=== PATIENT | male | born 1995 | race Caucasian/White ===

== ENCOUNTER 2020-12-05 19:01 | Emergency (ER) | payer OTHER, SELFPAY ==
[2020-12-05 19:30] VITALS: BP 124/65; PULSE 115; RESP 18; TEMP 39.4; O2SAT 100; BMI 33.9
--- NOTE | 2020-12-05 19:43 | ED_ITS ---
HPI - Fever General: Chief Complaint: Fever Stated Complaint: Got Covid Shot\Fever\Numbness\Blacking Out Time Seen by Provider: 12/05/20 19:43 History of Present Illness: HPI Narrative: Patient comes in today with complaints of fever sore throat and body aches since Tuesday. On Tuesday patient had got his second Mederma vaccine. Patient reports 2 prior episodes of COVID-19 with his last episode last October and 2019. Patient appears mildly unwell but not toxic. Patient is alert oriented and talking without difficulty. Respirations are even and skin is warm and dry. MD elicited complaint: fever Review of Systems General: Reports: 10 or more systems reviewed and unremarkable except in HPI and below Const: Reports: fever(s) ENMT: Reports: throat pain Musc: Reports: other (Myalgias) Physical Exam Const: COMMON NORMALS: no acute distress and patient oriented x3 GENERAL APPEARANCE: cooperative HENMT: COMMON NORMALS: normocephalic, TM's normal bilaterally and Normal external nose present HEAD & SCALP: normal to inspection and normocephalic NOSE: Normal external nose present TYMPANIC MEMBRANE: TM's normal bilaterally MOUTH: Normal oral and palatal mucosa present THROAT: posterior oropharynx abnormal erythema and exudates Eye: GENERAL EYE: appearance normal, both eyes and all related structures Neck/C-Spine: COMMON NORMALS: full ROM Chest: COMMONS NORMALS: normal inspection of the chest Resp: COMMON NORMALS: normal respiratory effort and clear to auscultation bilaterally EFFORT & INSPECTION: Yes able to speak in complete sentences AUSCULTATION: clear to auscultation bilaterally Cardio: COMMON NORMALS: regular rate and regular rhythm RATE: regular rate RHYTHM: regular rhythm GI: COMMON NORMALS: non-tender : COMMON NORMALS: Yes no CVA tenderness BLADDER/KIDNEY EXAM: Yes no CVA tenderness Back/Pelvis: COMMON NORMALS: no CVA tenderness and thoracic and lumbar spine normal to inspection Extremity: COMMON NORMALS: normal to inspection Neuro: COMMON NORMALS: patient oriented x3 and moves all extremities Psych: COMMON NORMALS: mental status grossly normal and cooperative Skin: COMMON NORMALS: no rashes or lesions noted GENERAL SKIN EXAM: no rashes or lesions noted Course Vital Signs: Vital signs: Vital Signs Temperature 103.0 F H 12/05/20 19:30 Pulse Rate 99 12/05/20 19:49 Respiratory Rate 17 12/05/20 19:49 Blood Pressure 153/73 12/05/20 19:49 Pulse Oximetry 95 12/05/20 19:49 MDM - Fever MDM Narrative: Medical decision making narrative: 25-year-old male patient comes in with sore throat and fever. Patient reports illness since getting his second COVID-19 vaccine. On exam patient has some erythema and some tonsillar exudate. Respirations are even lungs are clear to auscultation. Vital signs are normal except for elevated temperature. Skin is warm and dry. Abdomen soft nontender. Respirations even lungs clear to auscultation. Differential diagnosis includes but not limited to viral pharyngitis, strep pharyngitis, COVID-19, influenza, post vaccine response. Patient was treated with ketorolac and acetaminophen for pain and fever. Patient was also given 10 mg dexamethasone for his pharyngitis. Lab screening test for Covid, strep, influenza were negative. CBC and CMP were unremarkable. CRP was slightly elevated at 68. I believe patient probably most likely has a immune response to his vaccine, although patient may have a secondary viral infection. We treated with medications and patient felt better. Recommended patient continue with routine acetaminophen and ibuprofen for discomfort. Encourage plenty of fluids. Patient reported understanding and agreed to plan. Lab Data: Labs: Lab Results 12/05/20 12/05/20 12/05/20 19:45 19:45 19:48 WBC 8.5 10^3/uL 10^3/ uL (4.0-10.0) RBC 5.51 10^6/uL H 10 ^6/uL (4.1-5.3) Hgb 16.1 g/dL g/dL (11.7-16.6) Hct 46.1 % % (42.0-52.0) MCV 83.7 fl fl (80-94) MCH 29.2 pg pg (28.0-34.0) MCHC 34.9 g/dL g/dL (30.0-36.0) RDW 12.3 % % (12.1-15.1) Plt Count 151 10^3/cmm 10^3 /cmm (130-400) MPV 11.9 fL H fL (7.4-10.4) Neut % (Auto) 72.7 % % Lymph % (Auto) 11.5 % % Sanders % (Auto) 14.8 % % Eos % (Auto) 0.8 % % Baso % (Auto) 0.1 % % Neut # (Auto) 6.16 10^3/uL 10^3 /uL (1.8-7.7) Lymph # (Auto) 1.0 10^3/uL 10^3/ uL (0.8-4.8) Sanders # (Auto) 1.3 10^3/uL H 10^ 3/uL (0.2-0.9) Eos # (Auto) 0.1 10^3/uL 10^3/ uL (0.0-0.8) Baso # (Auto) 0.0 10^3/uL 10^3/ uL (0.0-0.1) Nucleated RBC % (a uto) 0 % % Nucleated RBCs # 0.0 /100WBC /100W BC Sodium Potassium Chloride Carbon Dioxide Anion Gap BUN Creatinine GFR Calculation Glucose Calculated Osmolal ity Lactic Acid 1.0 mmol/L mmol/L (0.5-2.2) Calcium Total Bilirubin AST ALT Alkaline Phosphata se Creatine Kinase C-Reactive Protein Total Protein Albumin Globulin Monoscreen Negative (Negative) Influenza Type A A g Influenza Type B A g SARS-CoV-2 Ag (Rap id) Group A Strep Rapi d 12/05/20 12/05/20 12/05/20 19:48 19:50 19:50 WBC RBC Hgb Hct MCV MCH MCHC RDW Plt Count MPV Neut % (Auto) Lymph % (Auto) Sanders % (Auto) Eos % (Auto) Baso % (Auto) Neut # (Auto) Lymph # (Auto) Sanders # (Auto) Eos # (Auto) Baso # (Auto) Nucleated RBC % (a uto) Nucleated RBCs # Sodium 135 mmol/L L mmol /L (136-145) Potassium 3.9 mmol/L mmol/L (3.5-5.1) Chloride 100 mmol/L mmol/L (98-107) Carbon Dioxide 22 mmol/L mmol/L (22-29) Anion Gap 16.9 (5-19) BUN 17 mg/dL mg/dL (6-20) Creatinine 0.6 mg/dL L mg/dL (0.7-1.2) GFR Calculation 161.6 mL/min H mL /min (90-130) Glucose 96 mg/dL mg/dL (65-115) Calculated Osmolal ity 281 mOsm/kg L mOs m/kg (285-295) Lactic Acid Calcium 9.0 mg/dL mg/dL (8.5-10.5) Total Bilirubin 0.4 mg/dL mg/dL (0.15-1.2) AST 14 U/L U/L (0-40) ALT 22 U/L U/L (0-41) Alkaline Phosphata se 52 IU/L IU/L (40-130) Creatine Kinase 56 U/L U/L (39-308) C-Reactive Protein 68.7 mg/L H mg/L (0.0-4.9) Total Protein 7.6 g/dL g/dL (6.6-8.7) Albumin 4.2 g/dL g/dL (3.5-5.2) Globulin 3.4 g/dL g/dL (1.3-4.6) Monoscreen Influenza Type A A g Influenza Type B A g SARS-CoV-2 Ag (Rap id) Negative (Negative) Group A Strep Rapi d Negative (Negative) 12/05/20 20:00 WBC RBC Hgb Hct MCV MCH MCHC RDW Plt Count MPV Neut % (Auto) Lymph % (Auto) Sanders % (Auto) Eos % (Auto) Baso % (Auto) Neut # (Auto) Lymph # (Auto) Sanders # (Auto) Eos # (Auto) Baso # (Auto) Nucleated RBC % (a uto) Nucleated RBCs # Sodium Potassium Chloride Carbon Dioxide Anion Gap BUN Creatinine GFR Calculation Glucose Calculated Osmolal ity Lactic Acid Calcium Total Bilirubin AST ALT Alkaline Phosphata se Creatine Kinase C-Reactive Protein Total Protein Albumin Globulin Monoscreen Influenza Type A A g Negative (Negative) Influenza Type B A g Negative (Negative) SARS-CoV-2 Ag (Rap id) Group A Strep Rapi d Discharge Plan Discharge Patient Disposition: Home Clinical Impression: Fever Qualifiers: Fever type: post-vaccination Qualified Code(s): R50.83 - Postvaccination fever Pharyngitis Qualifiers: Pharyngitis/tonsillitis etiology: unspecified etiology Qualified Code(s): J02.9 - Acute pharyngitis, unspecified Condition: Stable Discharge Orders: Discharge ED (Routine); Ordered 12/05/20 Ordered By: Je Montalvo Discharge Diet: Usual diet Discharge Activity: Increase activity as tolerated Patient Instructions: Fever in Adults (ED), Opioid Safety Activity Restrictions/Additional Instructions: Home and rest. Drink plenty of fluids. Continue with acetaminophen and ibuprofen for pain. Follow-up with primary care for further instruction. Return to the ER for new concerns. Coding Level of Care Code ED Trade Recruiter for Alissa Fwraymundo Exam Comprehensive
[2020-12-05 19:49] VITALS: BP 153/73; PULSE 99; RESP 17; O2SAT 95
--- NOTE | 2020-12-05 19:50 | XRR_ITS ---
PROCEDURE INFORMATION: Exam: XR Chest Exam date and time: 12/05/2020 7:50 PM Age: 25 years old Clinical indication: Fever TECHNIQUE: Imaging protocol: XR of the chest. Views: 1 view. COMPARISON: No relevant prior studies available. FINDINGS: Lungs: Unremarkable. No consolidation. Pleural spaces: Unremarkable. No pleural effusion. No pneumothorax. Heart/Mediastinum: Unremarkable. No cardiomegaly. Bones/joints: No acute findings. XR/XR chest 1V portable [id number] IMPRESSION: No acute findings.
[2020-12-05 19:57] LABS: Basophils % 0.1 %; Eosinophils # 0.1 10^3/uL (0.0-0.8); Eosinophils % 0.8 %; Hematocrit 46.1 % (42.0-52.0); Hemoglobin 16.1 g/dL (11.7-16.6); Lymphocytes % 11.5 %; Mean Corpuscular HGB Conc 34.9 g/dL (30.0-36.0); Mean Corpuscular Hemoglobin 29.2 pg (28.0-34.0); Mean Corpuscular Volume 83.7 fl (80-94); Mean Platelet Volume 11.9 fL (7.4-10.4); Monocytes # 1.3 10^3/uL (0.2-0.9); Monocytes % 14.8 %; Neutrophils # 6.16 10^3/uL (1.8-7.7); Neutrophils % 72.7 %; Nucleated Red Blood Cells % 0 %; Platelet Count 151 10^3/cmm (130-400); Red Blood Count 5.51 10^6/uL (4.1-5.3); Red Cell Distribution Width 12.3 % (12.1-15.1); White Blood Count 8.5 10^3/uL (4.0-10.0)
[2020-12-05] MEDS: ketorolac 30 mg/mL INJ 15 MG IVP (19:58)
[2020-12-05] MEDS: sodium chloride 0.9% 1,000 ML 999 ML IV (19:58)
[2020-12-05] MEDS: acetaminophen 500 mg Tablet 1000 MG PO (19:59)
[2020-12-05 20:23] LABS: SARS Covid-2 Antigen Negative (Negative)
[2020-12-05 20:24] LABS: Rapid Strep A Test Negative (Negative)
[2020-12-05 20:25] LABS: Influenza A by IFA Negative (Negative); Influenza B by IFA Negative (Negative)
[2020-12-05 20:28] LABS: Alanine Aminotransferase 22 U/L (0-41); Albumin Level 4.2 g/dL (3.5-5.2); Alkaline Phosphatase 52 IU/L (40-130); Anion Gap 16.9 (5-19); Aspartate Amino Transferase 14 U/L (0-40); Blood Urea Nitrogen 17 mg/dL (6-20); C Reactive Protein 68.7 mg/L (0.0-4.9); Carbon Dioxide 22 mmol/L (22-29); Chloride 100 mmol/L (98-107); Creatine Phosphokinase 56 U/L (39-308); Globulin 3.4 g/dL (1.3-4.6); Glomerular Filtration Rate 161.6 mL/min (90-130); Glucose 96 mg/dL (65-115); Osmolality Calculated 281 mOsm/kg (285-295); Potassium 3.9 mmol/L (3.5-5.1); Sodium 135 mmol/L (136-145); Total Bilirubin 0.4 mg/dL (0.15-1.2); Total Protein 7.6 g/dL (6.6-8.7)
[2020-12-05 20:32] LABS: Monoscreen Negative (Negative)
[2020-12-05] MEDS: dexamethasone 10 mg/mL INJ IVP (21:21)
[2020-12-05 21:40] VITALS: BP 134/61; PULSE 94; RESP 18; O2SAT 96
== END 2020-12-05 21:42 | disposition home or self-care (01) ==
PROVIDERS: Emergency Provider Nurse Practitioner Family
DX: R50.83 Postvaccination fever (principal); J02.9 Acute pharyngitis, unspecified; Z20.822 Contact with and (suspected) exposure to COVID-19
CPT/HCPCS: 71045; 80053; 82550; 83605; 85025; 86140; 86308; 87081; 87426; 87804; 87880; 96361; 96374; 96375; 99284; J1100; J1885; J7030

== ENCOUNTER → 2024-10-15 14:52 | Outpatient (BNVA) | payer OTHER, SELFPAY | PROVIDERS: Visit Provider Emergency Medicine | DX: J02.9 Acute pharyngitis, unspecified (principal) | CPT/HCPCS: 87071; 87426; 87880 ==

== ENCOUNTER 2025-01-05 23:36 | Emergency (ER) | payer OTHER, SELFPAY ==
[2025-01-05 23:39] VITALS: BP 164/100; PULSE 100; RESP 16; O2SAT 96; BMI 38.2
--- OUTSIDE RECORDS SUMMARY | 2025-01-05 23:43 | XMS_ITS | Clinical Summary ---
Author Organization [employer] Address [address] 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
--- NOTE | 2025-01-05 23:56 | W.ED.WOUNDLC ---
HPI - Wound/Laceration General: Chief Complaint: Wound/Laceration Stated Complaint: Laceration on LT Hand Time Seen by Provider: 01/05/25 23:55 History of Present Illness: Patient presents with a laceration to the hand that occurred approximately 4-5 hours prior to presentation. The patient reports the injury occurred while cutting a zip tie with a knife when the knife slipped and cut towards himself. Initial first aid was performed in the field as the patient was in the middle of the trails at the time of injury. The wound was cleaned with antiseptic and closed with liquid skin adhesive ( new skin ) and bandaged. The patient removed the bandage recently and noticed the wound had started bleeding again, indicating failure of the skin glue repair. Patient presents for definitive wound management. Related Data Home Medications ?Medication ?Instructions ?Recorded ?Confirmed semaglutide 0.25 mg or 0.5 mg (2 mg SUBCUT 10/29/23 10/15/24 mg/1.5 mL) subcutaneous pen injector Previous Rx's ?Medication ?Instructions ?Recorded ibuprofen 600 mg tablet 600 mg PO Q8H PRN pain #45 tabs 10/29/23 methocarbamol 750 mg tablet 750 mg PO Q8H #30 tabs 10/29/23 promethazine-DM 6.25 mg-15 mg/5 mL 5 ml PO Q4H PRN cough #118 mL 12/13/23 oral syrup cefdinir 250 mg/5 mL oral 300 mg (6 mL) PO Q12H 10 days #120 10/15/24 suspension mL ibuprofen 800 mg tablet 800 mg PO Q8H PRN pain #30 tabs 10/15/24 promethazine-DM 6.25 mg-15 mg/5 mL 10 ml PO Q6H PRN cough #473 mL 10/15/24 oral syrup Allergies Allergy/AdvReac Type Severity Reaction Status Date / Time No Known Allergies Allergy Unverified 01/05/25 23:47 PFSH ED PFSH: Surgical History History of strabismus surgery Hx of appendectomy Family History Father Cancer Lymphoma Mother Stroke Breast cancer Social History Smoking and tobacco/nicotine status: never used tobacco/nicotine Quit status (tobacco/nicotine): has quit using Year quit tobacco: 2019 Alcohol intake: current Alcohol intake frequency: few times a month Alcohol type: beer Substance/Drug Use: never Marital status: Single Number of children: 1 Current occupational status: employed Previous occupational history: [employer] Current gender identity: [id number] Physical Exam Const: COMMON NORMALS: no acute distress GENERAL APPEARANCE: cooperative; not ill appearing and not frail appearing HENMT: COMMON NORMALS: normocephalic, atraumatic and Normal external nose present HEAD & SCALP: normocephalic and atraumatic FACE & SINUS: normal facial exam and face symmetric NOSE: Normal external nose present Eye: COMMON NORMALS: Equal, round and reactive pupils present and EOMs intact bilaterally PUPIL: Yes Equal, round and reactive pupils present Neck/C-Spine: GENERAL: Yes trachea midline Chest: CHEST: Yes Symmetrical chest wall rise Resp: COMMON NORMALS: normal respiratory effort, No retractions and No use of accessory muscles Cardio: COMMON NORMALS: regular rate and regular rhythm RATE: regular rate RHYTHM: regular rhythm GI: COMMON NORMALS: Normal to inspection, nondistended, normoactive bowel sounds present Neuro: DARIANA COMA SCALE: document GCS findings [place] coma scale eye opening: Spontaneous [place] coma scale verbal response: Orientated Dariana coma scale motor response: Obey commands [place] coma scale total score: 15 SENSORY EXAM: Yes extremities (intact) Psych: COMMON NORMALS: speech normal SPEECH: Yes normal speech Skin: NARRATIVE SKIN EXAM: Superficial laceration to the posterior left thumb measuring 2.5 cm. Bleeding controlled. No substances in the wound including skin adhesive. Procedures Laceration Laceration 1: Site: hand Side (If applicable): left Size (cm): 2.5 Description: linear Depth: simple, single layer Local Anesthetic: lidocaine 1% Amount of anesthesia used (mL): 3 Pre-repair: wound explored, irrigated extensively and deep structures intact Skin layer closed with: nylon Size (cm): 4-0 Number of sutures: 3 Course Vital Signs: Vital signs: Vital Signs Pulse Rate 100 01/05/25 23:39 Respiratory Rate 16 01/05/25 23:39 Blood Pressure 164/100 01/05/25 23:39 Pulse Oximetry 96 01/05/25 23:39 Oxygen Delivery Me thod Room Air 11/01/25 23:39 MDM - Wound/Laceration Medical Decision Making Cleaned. Sutured. Tdap given. No radiology studies performed this visit Discharge Plan Discharge Patient Disposition: Home Clinical Impression: Laceration of hand Qualifiers: Encounter type: initial encounter Foreign body presence: without foreign body Laterality: left Qualified Code(s): S61.412A - Laceration without foreign body of left hand, initial encounter Condition: Stable Prescriptions: No Action promethazine-DM 6.25-15 mg/5 mL syrup 5 ml PO Q4H PRN (Reason: cough) Qty: 118 0RF Rx Instructions: Do not exceed more than 30ml/24hour period (6 doses) semaglutide 0.25 mg or 0.5 mg(2 mg/1.5 mL) pen injector SUBCUT ibuprofen 600 mg tablet 600 mg PO Q8H PRN (Reason: pain) Qty: 45 0RF methocarbamol 750 mg tablet 750 mg PO Q8H Qty: 30 0RF promethazine-DM 6.25-15 mg/5 mL syrup 10 ml PO Q6H PRN (Reason: cough) Qty: 473 0RF ibuprofen 800 mg tablet 800 mg PO Q8H PRN (Reason: pain) Qty: 30 0RF Rx Instructions: take with food cefdinir 250 mg/5 mL suspension for reconstitution 300 mg PO Q12H 10 Days Qty: 120 0RF Discharge Orders: Discharge ED (Routine); Ordered 01/06/25 Ordered By: Vincent Guillermo Patient Instructions: Finger Laceration (ED), Opioid Safety, Pain Management, Patient Portal & Emelia Instructions Activity Restrictions/Additional Instructions: Keep dry for 24 hours then you may wash with soap and running water. Do not soak. Sutures should come out in 10 days or so. Return for any problems. Print Language: Turkish Coding Level of Care Code ED Pantograph Machine Set Up Operator for Alissa Medina
[2025-01-06] MEDS: lidocaine 2% INJ 20 mL INJECTION (00:03)
[2025-01-06] MEDS: tetanus-dipt-pertussis 0.5 mL SDV IM (00:03)
== END 2025-01-06 00:31 | disposition home or self-care (01) ==
PROVIDERS: Emergency Provider Emergency Medicine
DX: S61.412A Laceration without foreign body of left hand, initial encounter (principal); W26.0XXA Contact with knife, initial encounter; Z87.891 Personal history of nicotine dependence
CPT/HCPCS: 12001; 90471; 90715; 99283; J9999